=== PATIENT | male | born 1980 | race Caucasian/White ===

== ENCOUNTER 2020-03-30 00:35 | Emergency (ER) | payer BC, MEDICAID ==
[~2020-03-30] VITALS: Ht 167.6 cm; Wt 81.0 kg
[2020-03-30] MEDS ORDERED: LABETALOL 5MG/ML, 20ML ONE (01:06)
--- NOTE | 2020-03-30 01:26 | NUR ---
BREAK RN: PT PLACED ON ALL MONITORS, PT MEDICATED FOR HBP AT THIS TIME,
[2020-03-30] MEDS ORDERED: LABETALOL 5MG/ML, 20ML IVPush ONE (01:30)
[2020-03-30] MEDS ORDERED: SODIUM CHLORIDE FLUSH 10ML SYR IVF ONE (01:30)
[2020-03-30 01:37] LABS: ALANINE AMINOTRANSFERASE 46 U/L (12-78); ALBUMIN 4.2 g/dL (3.4-5.0); ANION GAP 5 mmol/L (5-15); CALCIUM 8.9 mg/dL (8.5-10.1); CHLORIDE 110 mmol/L (98-107)
[2020-03-30 01:41] LABS: ALKALINE PHOSPHATASE 49 U/L (45-117); BILIRUBIN,TOTAL 0.8 mg/dL (0.2-1.0); TOTAL PROTEIN 7.4 g/dL (6.4-8.2); TROPONIN I < 0.015 ng/mL (0.000-0.045)
[2020-03-30 01:43] LABS: BASOPHILS % (AUTO) 0 % (0-1); EOSINOPHILS % (AUTO) 5 % (1-7); LYMPHOCYTES % (AUTO) 21 % (22-44); MEAN CORPUSCULAR HEMOGLOBIN 32.6 pg (27.5-34.5); MEAN CORPUSCULAR HGB CONC 34.2 g/dL (33.2-36.2); MEAN PLATELET VOLUME 7.6 fL (7.4-10.4); MONOCYTES % (AUTO) 8 % (2-9); NEUTROPHILS % (AUTO) 67 % (42-75); PLATELET COUNT 276 x10^3/uL (130-400); RED BLOOD COUNT 4.93 x10^6/uL (4.38-5.82); RED CELL DISTRIBUTION WIDTH 13.1 % (9.4-14.8)
[2020-03-30 01:59] LABS: MD NO
--- NOTE | 2020-03-30 02:07 | NUR ---
PT STATES HE FEELS LESS ANXIOUS AFTER LABETOLOL.
[2020-03-30 02:30] VITALS: BP 154/98
== END 2020-03-30 02:32 | disposition home or self-care (01) ==
LOC: ED 01:37
DX: I10 Essential (primary) hypertension (principal); F17.200 Nicotine dependence, unspecified, uncomplicated
CPT/HCPCS: 36415; 71045; 80053; 84484; 85025; 93005; 96374